=== PATIENT | female | born 1995 | race Two or more races ===

== ENCOUNTER 2025-02-08 12:22 | Emergency (ER) | payer OTHER ==
[2025-02-08 12:33] VITALS: BP 131/47; PULSE 65; RESP 18; TEMP 97.7; BMI 24.5
[2025-02-08] MEDS ORDERED: MECLIZINE HCL 12.5 MG TABLET ONE (13:31)
[2025-02-08] MEDS: MECLIZINE HCL 12.5 MG TABLET PO ONE (13:34)
== END 2025-02-08 15:23 | disposition home or self-care (01) ==
LOC: JER 12:22
DX: R42 Dizziness and giddiness (principal); R51.9 Headache, unspecified
CPT/HCPCS: 99283-25